=== PATIENT | female | born 1975 | race Asian ===

== ENCOUNTER → 2020-03-30 | Outpatient (CLI) | payer BC | LOC: MC.RAD 08:07 | DX: Z12.31 Encounter for screening mammogram for malignant neoplasm of breast (principal); Z80.3 Family history of malignant neoplasm of breast ==

== ENCOUNTER → 2021-02-18 | Outpatient (CLI) | payer BC | LOC: COL.RAD 11:21 | DX: N95.1 Menopausal and female climacteric states (principal) ==

== ENCOUNTER → 2021-04-01 | Outpatient (CLI) | payer BC | LOC: MC.RAD 08:50 | DX: Z12.31 Encounter for screening mammogram for malignant neoplasm of breast (principal) ==

== ENCOUNTER → 2022-05-13 | Outpatient (CLI) | payer BC | LOC: MC.RAD 08:23 | DX: Z12.11 Encounter for screening for malignant neoplasm of colon (principal); N63.20 Unspecified lump in the left breast, unspecified quadrant ==

== ENCOUNTER → 2022-05-16 | Outpatient (CLI) | payer BC | LOC: MC.RAD 10:50 | DX: N60.02 Solitary cyst of left breast (principal) ==

== ENCOUNTER → 2023-05-20 | Outpatient (CLI) | payer BC ==
[~2023-05-20] MED LIST: PRINIVIL20 MG PO
== END ==
LOC: MC.RAD 08:04
DX: Z12.31 Encounter for screening mammogram for malignant neoplasm of breast (principal); Z80.3 Family history of malignant neoplasm of breast